=== PATIENT | female | born 1940 | race Caucasian/White ===

== ENCOUNTER 2023-08-08 15:27 | Outpatient (CLI) | payer MEDICARE, OTHER | END 2023-08-08 23:12 | disposition critical access hospital (66) | LOC: EMS 15:27 | DX: S01.511A Laceration without foreign body of lip, initial encounter (principal); W01.0XXA Fall on same level from slipping, tripping and stumbling without subsequent striking against object, initial encounter; Y93.K1 Activity, walking an animal; Y92.481 Parking lot as the place of occurrence of the external cause; Z79.01 Long term (current) use of anticoagulants | CPT/HCPCS: A0425; A0429 ==

== ENCOUNTER 2023-08-08 15:35 | Emergency (ER) | payer MEDICARE, OTHER ==
[2023-08-08] MEDS: ACETAMINOPHEN 500 MG TABLET PO STA (16:14)
[2023-08-08] MEDS: LIDOCAINE VISCOUS 2% 15 ML UDC MM STA (16:14)
--- NOTE | 2023-08-08 16:45 | CT Report ---
PROCEDURE: Maxillofacial WO INDICATIONS: fall, struck face central TECHNIQUE: Noncontrast 1.5 mm thick axial images acquired from the mandible through the frontal sinuses, with co dixie and sagittal reformatting. 3-D reformatted images were performed. For radiation dose reducti on, the following was used: automated exposure control, adjustment of mA and/or kV according to martinez ent size. COMPARISON: Correlation is made with the accompanying imaging. FINDINGS: Image quality: Excellent. Bones and teeth: Orbital samuel are intact. Sinus samuel show no fracture or deformity. Nasal bones and septum are intact. Visualized portions of the mandible demonstrate no fractures or subluxation. Zygomatic arches are intact. Pterygoid plates are intact. Visualized portions of the skull base an d auditory canals are intact. Sinuses: Mucous retention cysts can be seen within the maxillary sinuses. There is a mild degree muco allie thickening within the posterior aspect of the left ethmoid air cells. Mild left mastoid air cell fluid can be seen. Soft tissues: No edema, masses, or fluid collections. No enlarged lymph nodes. No soft tissue lace rations or debris. Vascular: Visualized vascular structures appear normal in the absence of contrast. Bony vascular fo ramina and canals are intact. IMPRESSION: No displaced facial bone fractures can be seen. Reviewed by: Arturo Cali MD on 08/08/2023 3:44 PM LUZ Approved by: Arturo Cali MD on 08/08/2023 3:44 PM LUZ Station ID: [id number]
--- NOTE | 2023-08-08 16:46 | CT Report ---
PROCEDURE: Head WO INDICATIONS: fall, struck face, on DOAC TECHNIQUE: Noncontrast 4.5 mm thick angled axial sections acquired from the foramen magnum to the vertex. For r adiation dose reduction, the following was used: automated exposure control, adjustment of mA and/or kV according to patient size. COMPARISON: Correlation is made with the accompanying imaging. FINDINGS: Image quality: Excellent. CSF spaces: Basal cisterns are patent. No extra-axial fluid collections. Ventricles are normal in size and shape. Brain: No midline shift. No intracranial masses or hemorrhage. Stanton-white matter interface is norm al. Skull and face: Calvarium and visualized facial bones are intact, without suspicious lesions. Sinuses: Mucous retention cyst can be seen within the maxillary sinuses. There is focal mild mucosal thickening within the posterior left ethmoid air cells. There is a mild degree of mucosal thickening within the left mastoid air cells. Visualized sinuses and mastoids are otherwise relatively clear. IMPRESSION: No intracranial hemorrhage is seen. No significant intracranial abnormality is seen. Reviewed by: Arturo Cali MD on 08/08/2023 3:44 PM AKDT Approved by: Arturo Cali MD on 08/08/2023 3:44 PM AKDT Station ID: [id number]
[2023-08-08] MEDS: HYDROcod/ACETAM 5/325 MG TABLET PO STA (17:11)
[2023-08-08] MEDS: BACITRACIN ZINC OINT 1 PACKET TOP STA (17:11)
--- NOTE | 2023-08-08 17:21 | ED Physician Documentation ---
PD HPI Fall - Stated complaint Stated Complaint: GLF - Chief complaint Chief Complaint: Trauma Hd/Nk - History obtained from History obtained from: Patient, Family (spouse), EMS - History of Present Illness Mechanism of injury: Tripped Fall distance: Standing position (she states she tripped on the leash of her dog and fell forward striking face. Denies LOC. No pain chest/abd. Has innjury to nose/forehead, upper lip and upper inner lip/teeth. Takes DOAC for atrial fib.) Where injury occurred: Other (visiting resident at nearby SNF.) Injury(ies) location: Face. No: Neck, Chest, Abdomen Pain level max: 6 Pain level now: 4 (at nose and midface/upper lip areas.) Associated symptoms: No: LOC, AMS, Neck pain, Weakness, Paresthesias Symptoms improve with: Ice Worsens with: Palpation Contributing factors: Anticoagulated Similar symptoms before: Has not had sx before Review of Systems Constitutional: denies: Fever, Chills Nose: denies: Rhinorrhea / runny nose, Congestion Throat: denies: Sore throat Respiratory: denies: Cough PD PAST MEDICAL HISTORY - Past Medical History Past Medical History: Yes Cardiovascular: Atrial fibrillation - Present Medications Home Medications: Ambulatory Orders Medication Instructions Recorded Confirmed HYDROcod/ACETAM 5/325 [[place] 5/325] 1 ea PO Q6H PRN #10 tablet 08/08/23 - Allergies Allergies/Adverse Reactions: Allergies Allergy/AdvReac Type Severity Reaction Status Date / Time cephalexin [From Keflex] Allergy Nausea Verified 08/08/23 15:41 erythromycin base Allergy Nausea Verified 08/08/23 15:41 - Social History Does the pt smoke?: No Smoking Status: Never smoker Does the pt have substance abuse?: No - Immunizations Immunizations are current?: No PD ED PE NORMAL - Vitals Vital signs reviewed: Yes - General General: Alert and oriented X 3, No acute distress, Well developed/nourished - HEENT HEENT: Other (bridge of nose and lower forehead with abrasions. No FB no active bleeding. Some dirt in forehead one, cleaned by nursing. nose with tender and swelling but no gross deformity. Upper lip with lac inside and does not extend to fatty tissue. Appears it should heal okay. ). No: Pharynx benign - Neck Neck: Supple, no meningeal sign, No adenopathy, Other (no Cervical collar in place. ) - Cardiac Cardiac: RRR - Derm Derm: Normal color, Warm and dry - Neuro Neuro: Alert and oriented X 3, No motor deficit, Normal speech Eye Opening: Spontaneous Motor: Obeys Commands Verbal: Oriented GCS Score: 15 Results - Vitals Vitals: Vital Signs - 24 hr 08/08/23 08/08/23 08/08/23 15:37 16:00 16:30 Temperature 36.5 C Heart Rate 94 82 77 Respiratory 15 18 16 Rate Blood Pressure 132/64 H 142/66 H 130/84 H O2 Saturation 96 96 96 08/08/23 08/08/23 08/08/23 17:00 17:23 17:36 Temperature Heart Rate 70 78 78 Respiratory 16 18 18 Rate Blood Pressure 128/72 132/56 H 130/84 H O2 Saturation 98 96 96 08/08/23 17:47 Temperature Heart Rate 82 Respiratory 16 Rate Blood Pressure 132/80 H O2 Saturation 98 Oxygen O2 Source Room air - Rads (name of study) head CT Relevant Findings:: Prelim report reviewed (no ICH nor acute fractures), EMP independent interpretation of test maxillofacial CT Relevant Findings:: Prelim report reviewed, EMP independent interpretation of test (no acute fractures. ) PD Medical Decision Making - ED course Complexity details: reviewed results (no fractures nor ICH. Pt would like med more than tylneol/Ibuprofen. Given Hydrocodone as no concussive symptoms really. 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 Pain in mid face.), d/w patient Departure - Departure Disposition: 01 Home, Self Care Clinical Impression: Fall from slip, trip, or stumble, Facial abrasion, Lip laceration, Anticoagulant long-term use Condition: Stable Instructions: ED Laceration Mouth Prescriptions: HYDROcod/ACETAM 5/325 [[place] 5/325] 1 ea PO Q6H PRN #10 tablet PRN Reason: Pain Comments: Your CT scans of the face head and upper neck are without any signs of intracranial bleeding or fractures. Cleanse the abrasions with soap and water once or twice daily and apply ointment. The inner lip laceration does not look deep enough to need suturing and should heal. Avoid salty foods or such that might be staying for the area. Tylenol every 4-6 hours if needed for pain. Add hydrocodone every 6 hours if needed for worse pain. I would anticipate this just needing to be short-term from the injuries. Recheck if signs of infection of the wounds. I sent your prescription to the [facility] in [place]. Follow-up if not healing well or any signs of infection. I am prescribing a short course of narcotic pain medication for you. These are potentially dangerous and addictive medications that should be used carefully. These medications may constipate you. Take an [id number] stool softener such as docusate twice daily with plenty of water while taking these medications. If you go 24 hours without a bowel movement, take [id number]-swlchow MiraLAX, per package instructions. Do not drink or drive while taking these medications. If you received narcotic or sedating medications while in the emergency department do not drive for 24 hours. Store this medication in a safe, secure place and out of reach of children. It is a violation of federal law to give or sell this medication to another person or to use in a manner other than prescribed. The ED will not refill narcotic prescriptions, including prescriptions lost or stolen. You can dispose of unwanted medications at the [facility]'s office or at several pharmacies such as [facility]. Forms: PCP List Discharge Date/Time: 08/08/23 17:38
[2023-08-08 17:57] VITALS: BP 132/80; O2SAT 98
== END 2023-08-08 17:38 | disposition home or self-care (01) ==
LOC: ED 15:35
DX: S01.511A Laceration without foreign body of lip, initial encounter (principal); S00.31XA Abrasion of nose, initial encounter; W01.0XXA Fall on same level from slipping, tripping and stumbling without subsequent striking against object, initial encounter; I48.91 Unspecified atrial fibrillation; Z79.01 Long term (current) use of anticoagulants
CPT/HCPCS: 70450; 70486; 99284; A9270